=== PATIENT | male | born 1980 | race Caucasian/White ===

== ENCOUNTER 2025-04-20 08:50 | Outpatient (REF) | payer OTHER, SELFPAY ==
[2025-04-20 13:05] LABS: MANUAL DIFF FLAG NO
[2025-04-20 13:10] LABS: Hematocrit 41.3 % (42.0-52.0); Hemoglobin 13.9 g/dl (14.0-18.0); Imm Gran Abs Auto 0.13 X10*3/uL (0.00-0.03); Imm Gran Pct Auto 1.7 % (0.0-0.4); Lymphocytes Absolute Auto 1.8 X10*3/uL (1.2-4.9); Mean Corpuscular HGB Conc 33.7 g/dl (31.0-36.0); Mean Corpuscular Hemoglobin 27.1 pg (27.0-33.0); Mean Corpuscular Volume 80.5 fL (80.0-98.0); NRBC Abs Auto 0.000 X10*3/uL (0.0-0.012); NRBC Pct Auto 0.0 /100WBC (0.0-0.2); Platelet Count 225 X10*3/uL (160-400); Red Blood Count 5.13 X10*6/uL (4.60-5.80); White Blood Count 7.4 X10*3/uL (4.8-10.8)
[2025-04-20 13:24] LABS: Alanine Aminotransferase 46 U/L (0-40); Albumin Level 4.7 g/dL (3.5-5.0); Alkaline Phosphatase 126 U/L (39-117); Anion Gap 10 (12-20); Aspartate Amino Transferase 30 U/L (5-37); Blood Urea Nitrogen 9 mg/dL (9-16); Calcium 9.2 mg/dL (8.4-10.2); Carbon Dioxide 28 mmol/L (22-29); Chloride 105 mmol/L (96-108); Cholesterol 215 mg/dL (<200); Estimated Glomerular Filt Rate > 60; HDL Cholesterol 35 mg/dL (>40); Magnesium 2.2 mg/dL (1.6-2.6); Potassium 4.2 mmol/L (3.3-5.1); Sodium 139 mmol/L (135-145); Total Protein 7.7 g/dL (6.5-8.0); Triglycerides 143 mg/dL (<150)
[2025-04-20 13:33] LABS: Appearance Urine Turbid; Glucose Urine UA Negative (Negative); PH 5.5 (5.0-9.0); Specific Gravity - Urine >= 1.030 (1.005-1.025)
[2025-04-20 13:39] LABS: Total Hemoglobin (HGBA1C) 3560.7541 umol/L
[2025-04-20 14:02] LABS: Folate 9.6 ng/mL (> or = 4.0); Vitamin B12 238 pg/mL (200-900)
[2025-04-21 06:29] LABS: HBsAGNum1 0.43 S/CO (0.00-0.99); HIV Num 1 0.05 S/CO (0.00-0.99); Hepatitis B Surface Antigen Negative (Negative); ~HepC Num1 0.17 S/CO (0.00-0.79); ~Hepatitis B Surface Antibody REACTIVE (Nonreactive); ~Hepatitis C Antibody Nonreactive (Nonreactive)
[2025-04-28 01:48] LABS: VITAMIN D (1,25 OH) D3 77 pg/mL; Vit D (1,25-Dihydroxy) Total 77 pg/mL (18-72); Vitamin D (1,25 OH) D2 <8 pg/mL
== END 2025-04-20 08:51 | disposition home or self-care (01) ==
LOC: HO.HKASLDS 08:50
PROVIDERS: PCP Student in an Organized Health Care Education/Training Program; Visit Provider Student in an Organized Health Care Education/Training Program
DX: E66.01 Morbid (severe) obesity due to excess calories (principal); F41.9 Anxiety disorder, unspecified; F43.22 Adjustment disorder with anxiety; L98.9 Disorder of the skin and subcutaneous tissue, unspecified; Z13.1 Encounter for screening for diabetes mellitus; Z91.89 Other specified personal risk factors, not elsewhere classified; Z55.0 Illiteracy and low-level literacy; Z68.42 Body mass index [BMI] 45.0-49.9, adult
CPT/HCPCS: 36415; 80053; 80061; 81003; 82607; 82652; 82746; 83036; 83735; 85025; 86706; 86803; 87340; 87389; 96127

== ENCOUNTER 2025-04-20 08:50 | Outpatient (AMB) | payer OTHER, SELFPAY ==
--- NOTE | 2025-04-20 08:58 | A.OFFPC_ITS ---
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: No Accompanied by: Self / Same As Patient Allergies No Known Allergies Allergy (Verified 04/20/25 08:59) Tobacco use date assessed: 04/20/25 Dental Screening Dental Screen Date: 04/20/25 Did you have a dental visit in the last 12 months?: Yes Did you have a dental problem in the last 6 months where you did not have access to dental care?: No Was dental information given to patient?: No HPI HPI Comments 2 History of Present Illness0 Details History of Present Illness The patient is a 44-year-old male [facility] with a primary care physician and for assistance with social and vocational issues stemming from a learning disability. Anxiety and Social Determinants of Health: The patient reports experiencing anxiety following the loss of his [email or web address] job three weeks ago, a position he held for 20 years. His depression (PHQ) and anxiety (ALCON) screening scores were elevated. This anxiety is exacerbated by food and living insecurities, as his food stamp benefits were impacted. While he is considering therapy, he feels addressing his unemployment is the primary solution to his distress. Learning Disability: The patient has a significant learning disability, characterized by an inability to read or write effectively, which poses a major barrier to employment. He has a history of being in special education classes throughout his schooling. He requires a doctor's note documenting his disability to obtain a mentor for a [employer] certification program needed for kitchen work. Weight Gain: The patient has reportedly gained approximately 50 pounds since losing his job. Subcutaneous lesion of left upper limb: The patient reports having two bumps on his left arm, which he refers to as blood clots, that have been present for a long time. He states a previous doctor identified them as blood clots. The lesions are not painful. Surgical History: - Nasal fracture repair - [facility] - Unknown surgery on the left leg in [facility] Medications: - The patient has previously taken Vitam in for a vitamin deficiency but reports no current medications. Social History: - Education: The patient is illiterate, with difficulty in reading and writing, and was in special education classes during school. 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 - Social Support: He has a history of be ing in the foster care system from a young age. - Financial Security: He is experiencing food and living insecurities. - Substance Use: Denies any history of s moking, alcohol use, or illicit drug use. - Functional Status: Utilizes public tra nsportation (bus) or walks for travel. Family History: - Family history was not discussed. Diagnostic Results: - PHQ (depression screen) and ALCON (anxie ty screen) were noted to be elevated. Past Medical History - Specific learning disability with illi teracy, with a history of special education classes. - History of being in the foster care [facility] as a child. - History of vitamin deficiency, previou sly treated with vitamin C. - History of perforated left tympanic me mbrane, likely since childhood. - Patient denies any history of high blo od pressure or diabetes. Health Maintenance - The patient is establishing primary ca re, having not seen a doctor since before the COVID-19 pandemic. - Comprehensive baseline laboratory stud ies have been ordered, including a complete blood count, comprehensive metabolic panel, thyroid function tests, B12, folate, vitamin D, hemoglobin A1c, lipid panel, and screening for hepatitis B, hepatitis C, and HIV. [facility] Medical History Adjustment disorder with anxiety Illiterate Family History (Updated 04/20/25 @ 09:07 by Romario Brand MA) Father Liver cancer Mother Schizophrenia Social History Housing: Apartment Patient Tobacco Use Status: Never used Tobacco service: No Current occupational status: unemployed Cognitive needs: No Hearing needs: No Vision needs: No Questionnaire PHQ-9 Over the last 2 weeks, how often have you been bothered by any of the following problems? 1. Little interest or pleasure in doing things: several days 2. Feeling down, depressed, or hopeless: several days 3. Trouble falling or staying asleep, or sleeping too much: several days 4. Feeling tired or having little energy: several days 5. Poor appetite or overeating: more than half the days 6. Feeling bad about yourself - or that you are a failure or have let yourself or your family down: nearly every day 7. Trouble concentrating on things, such as reading the newspaper or watching television: more than half the days 8. Moving or speaking so slowly that other people could have noticed. Or the opposite - being so fidgety or restless that you have been moving around a lot more than usual: more than half the days 9. Thoughts that you would be better off or of hurting yourself in some way: not at all Total score: 13 Depression Screening Interpretation: Positive Depression Screening Done: Yes Source: Developed by Drs. Yordan Sheth, Lisa Poe, Yony Rehman and colleagues, with an educational yolanda from [employer]. Thrive Questionnaire I am a: Patient What is your living situation today?: I have a steady place to live Within the past 12 months, did the food you bought not last and you didn't have the money to get more?: Sometimes True Within the past 12 months, did you worry whether your food would run out before you got money to buy more?: Often true Do you have trouble paying for medicines?: No Do you have trouble getting transportation to medical appointments?: Yes Do you have trouble paying your heating and electricity bill?: No Do you have trouble taking care of your child, family member or friend?: No Are you currently unemployed and looking for a job?: Yes Are you interested in more education?: Yes Please select the resources that you would like help with: Food, Transportation, Care for elder or disabled, Daily support, Job search/training and Education Currently or been in a relationship where the following occur: No concerns reported THRIVE Score: 3 AUDIT C Alcohol Use Questionnaire (AUDIT-C) 1. How often do you have a drink containing alcohol?: Monthly or less 2. How many drinks containing alcohol do you have on a typical day when you are drinking?: 1 or 2 3. How often do you have six or more drinks on one occasion?: Never Total Score: 1 Score Reviewed/Action Taken: No ALCON-7 AMB Questionnaire ALCON-7 Feeling nervous, anxious, or on edge: 3 = Nearly every day Not being able to stop or control worryin = Nearly every day Worrying too much about different things: 3 = Nearly every day Trouble relaxin = Nearly every day Being so restless that it is hard to sit still: 2 = More than half the days Becoming easily annoyed or irritable: 2 = More than half the days Feeling afraid as if something awful might happen: 2 = More than half the days Total ALCON-7 score (0-4 normal; 5-9 mild; 10-14 moderate; 15-21 severe): 18 Source: Developed by Drs. Yordan Sheth, Lisa Poe, Yony Rehman and colleagues, with an educational yolanda from [employer]. Review of Systems Narrative Review of Systems - Constitutional: Reports a 50-pound weight gain since losing his job. - Psychiatric: Reports feeling anxiety due to unemployment. - Skin: Reports two non-painful lesions on his left arm. - GI: Reports normal urination and bowel movements. - Neurological: Reports sleeping well. 10-point ROS reviewed and negative except as noted in HPI Physical exam (Primary Care) BMI result Body Mass Index 48.7 Depression Screening Interpretation: Positive Currently or been in a relationship where the following occur: No concerns reported Narrative Physical Exam General: Well-appearing, in no acute distress. Vital signs: Within normal limits. HEENT: Normocephalic, atraumatic. PERRLA, EOMI. Conjunctiva clear, sclera anicteric. Oropharynx clear, mucous membranes moist. TMs intact bilaterally, except for a perforated membrane on the left side. Neck: Supple, no lymphadenopathy, no thyromegaly, no JVD or carotid bruits. Cardiovascular: RRR, normal S1/S2, no murmurs, rubs, or gallops. Peripheral pulses 2+ and symmetric. No edema. Respiratory: Lungs clear to auscultation bilaterally, no wheezes, rales, or rhonchi. Normal effort. Abdomen: Soft, non-tender, non-distended. Normoactive bowel sounds. No hepatosplenomegaly, no masses. MSK: Full range of motion, no joint swelling or deformity. Normal gait. History of surgery on both legs with visible scars. Skin: Warm, dry, intact. No rashes, lesions, or pallor. Neuro: Alert and oriented x3. Cranial nerves II-XII intact. Strength 5/5 throughout. Sensation intact. Reflexes 2+ symmetric. Normal coordination and gait. Psych: Appropriate mood and affect. Normal judgment and insight. Elevated PHQ and ALCON scores indicating anxiety and depression concerns. Skin Other: Coding Level of Care Code New Pt Level 4 (86252) Diagnoses Adjustment disorder with anxiety F43.22 Illiterate Z55.0 History of being in foster care Z91.89 Morbid obesity due to excess calories E66.01 Lesion of subcutaneous tissue L98.9 Assessment & Plan Assessment & Plan (1) Adjustment disorder with anxiety: Code(s): F43.22 - Adjustment disorder with anxiety Category: Medical (2) Illiterate: Code(s): Z55.0 - Illiteracy and low-level literacy Category: Medical (3) History of being in foster care: Code(s): Z91.89 - Other specified personal risk factors, not elsewhere classified (4) Morbid obesity due to excess calories: Code(s): E66.01 - Morbid (severe) obesity due to excess calories (5) Lesion of subcutaneous tissue: Code(s): L98.9 - Disorder of the skin and subcutaneous tissue, unspecified Plan Consent The patient provided verbal consent to have a photograph taken of the lesions on his arm to be uploaded into the electronic medical record. Patient was informed and verbally consented to the use of an ambient scribe for clinic note documentation during this visit. Plan 1. Anxiety And Social Determinants Of Health - An urgent referral will be placed to the community nurse navigator team to connect the patient with resources for his social, financial, and vocational needs. - A referral will be made to behavioral health for mental health support. - The patient was advised to provide a secondary contact number at checkout to ensure the referral teams can make contact. 2. Adult Health Maintenance & Establishment Of Care - Comprehensive baseline labs will be obtained, including CBC, CMP, thyroid panel, B12, folate, vitamin D, HbA1c, lipid panel, and a hepatitis B/C/HIV panel. - A follow-up visit is scheduled in two weeks to review laboratory results and assess progress. 3. Subcutaneous Lesion Of Left Upper Limb - The lesions were examined and a photograph was taken for documentation in the EMR. - No further workup or intervention is planned at this time. Discussion Notes I met with the patient, a 44-year-old male, who presented to [facility]. I acknowledged his significant socioeconomic stressors, including recent unemployment, illiteracy, food insecurity, and the resulting anxiety, confirmed by elevated PHQ and ALCON screens. I explained that the most immediate and impactful step is to connect him with our support services. I informed him that I am placing an urgent referral to our community nurse navigator team and a referral to behavioral health; I explained these teams are comprised of social workers, nurses, and other specialists who can help him access community resources. I emphasized the importance of ensuring his contact information is up to date and to call us if he doesn't hear from the teams within a few days. I also explained that as his new primary care physician, I am ordering a full panel of baseline labs to assess his overall health, as he has not had care in several years. We will follow up in two weeks to review these results. I obtained his consent to photograph a lesion on his arm for documentation. I reassured him that we will work together to get him the help he needs. Patient Instructions - Go to the lab to have the blood work done that we discussed. - Please make a follow-up appointment to see me again in two weeks to go over your lab results. - A referral has been sent to our community nurse navigator team and to our behavioral health team. - You should expect a phone call from them soon. - If you do not hear from them within a few days, please call our office. - At checkout, please give the staff both your phone number and a second contact number so these teams can reach you. Medical Decision Making The patient is a 44-year-old male with significant, acute social and economic stressors, presenting to [facility]. His chief complaints are situational anxiety secondary to recent unemployment and food insecurity, and barriers to re-employment due to illiteracy. Elevated depression and anxiety screens corroborate his subjective distress. The cornerstone of the management plan is to address these underlying social determinants of health. An urgent referral to the community nurse navigator was deemed most appropriate to provide immediate, comprehensive support for housing, vocational assistance, and resource navigation. A concurrent referral to behavioral health was made to address his anxiety. Given his lack of recent medical care, a comprehensive set of baseline labs was ordered to screen for common chronic diseases and nutritional deficiencies, establishing a baseline for future health monitoring. Physical exam findings, such as the chronic-appearing perforated eardrum and non-tender skin lesions, were documented but do not require acute intervention. A two-week follow-up will allow for review of lab results and confirmation that the patient has been successfully connected with the referred support services. Total time spent caring for the patient today was 20 minutes. This includes time spent before the visit reviewing the chart, time spent documenting, and time spent reviewing laboratory results, diagnostic imaging, medications, performing a medically necessary evaluation, counseling on diagnoses, care coordination. Orders: Orders 2 Comprehensive Met. Panel Today Z13.9 - Encounter for screening, unspecified HIV Ab/Ag Today Z13.9 - Encounter for screening, unspecified Magnesium Today Z13.9 - Encounter for screening, unspecified Vitamin D 1,25 dihydroxy Today Z13.9 - Encounter for screening, unspecified Complete Blood Count Auto Diff Today Z13.9 - Encounter for screening, unspecified Hemoglobin A1c Today Z13.9 - Encounter for screening, unspecified Hepatitis B Surface Antibody Today Z13.9 - Encounter for screening, unspecified Hepatitis B Surface Antigen Today Z13.9 - Encounter for screening, unspecified Hepatitis C Antibody Today Z13.9 - Encounter for screening, unspecified Lipid Panel Today Z13.9 - Encounter for screening, unspecified UA CC w/rflx Micro + Cult Today Z13.9 - Encounter for screening, unspecified Vitamin B12 and Folate Today Z13.9 - Encounter for screening, unspecified Referrals 2 Nurse Navigator Referral F43.22 - Adjustment disorder with anxiety, Z55.0 - Illiteracy and low-level literacy Behavioral Health Referral F43.22 - Adjustment disorder with anxiety, F89 - Unspecified disorder of psychological development, Z55.0 - Illiteracy and low- level literacy
[2025-04-20 09:01] VITALS: BP 116/76; PULSE 78; RESP 16; TEMP 36.9; O2SAT 97; BMI 48.7
== END 2025-04-20 09:30 | disposition home or self-care (01) ==
LOC: HO.HMCFMS 08:51
PROVIDERS: Visit Provider Student in an Organized Health Care Education/Training Program
DX: F43.22 Adjustment disorder with anxiety (principal); Z55.0 Illiteracy and low-level literacy; Z91.89 Other specified personal risk factors, not elsewhere classified; E66.01 Morbid (severe) obesity due to excess calories; L98.9 Disorder of the skin and subcutaneous tissue, unspecified

== ENCOUNTER 2025-05-05 09:29 | Outpatient (AMB) | payer OTHER, SELFPAY ==
[2025-05-05 09:45] VITALS: BP 138/84; PULSE 72; RESP 16; TEMP 37.3; O2SAT 96; BMI 48.3
--- NOTE | 2025-05-05 09:45 | A.OFFPC_ITS ---
Vital Signs 05/05/25 09:45 Height 5 ft 7.32 in Weight 311 lb 4 oz BMI 48.3 BP 138/84 Blood Pressure Location Rt brachial Position Sitting Respiration 16 Pulse 72 Pulse Source Pulse Oximeter Temp 99.1 F Temp Source Oral Pulse Oximetry (%) 96 Oxygen Delivery Method Room Air Intake Visit Reasons: 2 wk f/u Allergies No Known Allergies Allergy (Verified 05/05/25 09:46) Tobacco use date assessed: 04/20/25 Dental Screening Dental Screen Date: 04/20/25 HPI HPI Comments History of Present Illness Details History of Present Illness The patient is a 44-year-old male presenting for follow-up and review of lab results. Type 2 Diabetes Mellitus: The patient was newly diagnosed with type 2 diabetes mellitus based on a recent hemoglobin A1c of 6.5. Recent lab work also showed an elevated random glucose. He reports consuming too much soda. Hyperlipidemia: Recent lab results revealed hyperlipidemia, with a total cholesterol of 215 mg/dL, LDL of 152 mg/dL, and HDL of 35 mg/dL. He also has elevated liver enzymes, which is noted to coincide with his cholesterol levels. Anemia: The patient's recent lab work showed slightly low hemoglobin and hematocrit. He denies associated symptoms such as fatigue or dizziness. Vitamin B12 deficiency: Recent laboratory testing showed a vitamin B12 level at the lower end of the normal range at 238, with a reference range of 200-900. Medications: - The patient is not currently taking an y medications or vitamin supplements. Social History: - Employment: The patient recently secur ed a job at [email or web address] after a period of unemployment during which he felt down and broken. - Nutrition: Acknowledges drinking too m uch soda and intends to stop. - Physical Activity: He anticipates he w ill be walking more as part of his new job. Diagnostic Results: - White Blood Cells: Normal. - Red Blood Cells: Normal. - Hemoglobin and Hematocrit: Slightly lo w. - Chemistry panel: Sodium and potassium are normal; kidney function is normal. - Random Glucose: Elevated. - Hemoglobin A1c: 6.5. - Liver Enzymes: Elevated. - Total Cholesterol: 215 mg/dL. - LDL Cholesterol: 152 mg/dL. - HDL Cholesterol: 35 mg/dL. - Vitamin D: 77. - Vitamin B12: 238. - Folate: Normal. - Urinalysis: Normal. - Hepatitis B, Hepatitis C, HIV Screenin g: Negative. Past Medical History - Depressed mood: Patient reports previo usly feeling down trying and just broken due to unemployment. Health Maintenance - The community nurse navigator will be engaged to assist the patient in establishing a workout routine. - The patient will follow up in three mo hs for reassessment. [facility] Medical History Iron deficiency anemia Low vitamin B12 level Hyperlipidemia Diabetes type 2 Adjustment disorder with anxiety Illiterate Family History (Updated 04/20/25 @ 09:07 by Romario Brand MA) Father Liver cancer Mother Schizophrenia Social History Housing: Apartment Patient Tobacco Use Status: Never used Tobacco service: No Current occupational status: unemployed Cognitive needs: No Hearing needs: No Vision needs: No Questionnaire Thrive Questionnaire Date Thrive assessed: 04/20/25 I am a: Patient What is your living situation today?: I have a steady place to live Within the past 12 months, did the food you bought not last and you didn't have the money to get more?: Sometimes True Within the past 12 months, did you worry whether your food would run out before you got money to buy more?: Often true Do you have trouble paying for medicines?: No Do you have trouble getting transportation to medical appointments?: Yes Do you have trouble paying your heating and electricity bill?: No Do you have trouble taking care of your child, family member or friend?: No Are you currently unemployed and looking for a job?: Yes Are you interested in more education?: Yes Currently or been in a relationship where the following occur: No concerns reported THRIVE Score: 3 Review of Systems Narrative Review of Systems - Constitutional: Denies feeling tired or dizzy. - Psychiatric: Reports feeling positive and energetic after a recent period of feeling down trying and just broken. 10-point ROS reviewed and negative except as noted in HPI Physical exam (Primary Care) Vital Signs: Last Vital Signs Temp 99.1 F 05/05/25 09:45 Pulse 72 05/05/25 09:45 Resp 16 05/05/25 09:45 BP 138/84 05/05/25 09:45 Pulse Ox 96 05/05/25 09:45 Oxygen Delivery Method Room Air 05/05/25 09:45 BMI result Body Mass Index 48.3 Tobacco/Smoking Status: Tobacco use Status Tobacco use date assessed 04/20/25 05/05/25 09:45 Patient Tobacco Use Status Never used Tobacco 05/05/25 09:45 Thrive Assessment: Date of Thrive Assessment Date Thrive assessed 04/20/25 05/05/25 09:45 Currently or been in a relationship where the following occur: No concerns reported Narrative Physical Exam General: Well-appearing, in no acute distress. Vital signs: Within normal limits. HEENT: Normocephalic, atraumatic. PERRLA, EOMI. Conjunctiva clear, sclera anicteric. Oropharynx clear, mucous membranes moist. TMs intact bilaterally. Neck: Supple, no lymphadenopathy, no thyromegaly, no JVD or carotid bruits. Cardiovascular: RRR, normal S1/S2, no murmurs, rubs, or gallops. Peripheral pulses 2+ and symmetric. No edema. Respiratory: Lungs clear to auscultation bilaterally, no wheezes, rales, or rhonchi. Normal effort. Abdomen: Soft, non-tender, non-distended. Normoactive bowel sounds. No hepatosplenomegaly, no masses. MSK: Full range of motion, no joint swelling or deformity. Normal gait. Skin: Warm, dry, intact. No rashes, lesions, or pallor. Neuro: Alert and oriented x3. Cranial nerves II-XII intact. Strength 5/5 throughout. Sensation intact. Reflexes 2+ symmetric. Normal coordination and gait. Psych: Appropriate mood and affect. Normal judgment and insight. Mood is positive, with a noticeable improvement in energy and outlook. Coding Level of Care Code Est Pt Level 3 (31351) Diagnoses Diabetes type 2 E11.9 Hyperlipidemia E78.5 Low vitamin B12 level R79.89 Iron deficiency anemia D50.9 Assessment & Plan Assessment & Plan (1) Diabetes type 2: Code(s): E11.9 - Type 2 diabetes mellitus without complications Category: Medical (2) Hyperlipidemia: Code(s): E78.5 - Hyperlipidemia, unspecified Category: Medical (3) Low vitamin B12 level: Code(s): R79.89 - Other specified abnormal findings of blood chemistry Category: Medical (4) Iron deficiency anemia: Code(s): D50.9 - Iron deficiency anemia, unspecified Category: Medical Plan Consent The risks, benefits, and alternatives of initiating treatment for type 2 diabetes and hyperlipidemia were discussed. The patient was presented with the option of lifestyle modifications alone versus lifestyle modifications with medication. The patient expressed a desire to do whatever would help him and agreed to start the recommended medications, including metformin, a statin, and vitamin B12. Patient was informed and verbally consented to the use of an ambient scribe for clinic note documentation during this visit. Plan 1. Type 2 Diabetes Mellitus - The patient was diagnosed with type 2 diabetes mellitus based on a hemoglobin A1c of 6.5. - Will initiate metformin to help lower blood glucose levels. - Patient advised on lifestyle modifications, including reducing soda intake. - Referrals will be made to a material clerk and a family living educator. 2. Hyperlipidemia - The patient has elevated cholesterol with an LDL of 152 mg/dL. - Due to his new diagnosis of type 2 diabetes, he is at higher risk for cardiovascular disease, so a statin will be initiated to lower his LDL cholesterol to a goal of below 70 mg/dL. 3. Vitamin B12 Deficiency - Vitamin B12 level is on the lower side of normal at 238. - Will prescribe vitamin B12 supplementation to counteract the potential B12- lowering effect of metformin and to prevent fatigue. Discussion Notes I reviewed the patient's recent laboratory results with him. I explained that his hemoglobin A1c of 6.5 establishes a new diagnosis of type 2 diabetes mellitus. We discussed that while we caught it early and do not need to start insulin, medication would be beneficial. I also informed him about his high cholesterol levels and the elevated liver enzymes that likely correspond. I emphasized that the diabetes diagnosis places him at a higher risk for cardiovascular disease, necessitating more aggressive cholesterol management with a goal LDL under 70. I recommended starting oral medications for both diabetes (metformin) and cholesterol (a statin), in addition to lifestyle changes. I also recommended vitamin B12 supplementation to prevent deficiency related to metformin use. The patient agreed with the plan to start these medications. We discussed referrals for a material clerk and family living educator, as well as engaging the community nurse navigator for exercise guidance. He was instructed to follow up in three months. Patient Instructions - You have been diagnosed with type 2 diabetes and high cholesterol based on your recent lab work. - You will start taking metformin for diabetes, a statin medication for cholesterol, and a vitamin B12 supplement. - Your prescriptions have been sent to the [facility] pharmacy at [address] [place] [address] in [place]. - It is very important to make lifestyle changes, including stopping soda consumption and drinking more water, as well as increasing your physical activity. - You will be contacted by a material clerk and a family living educator to help you manage your new diagnosis. - The community nurse navigator can help you find a workout routine. - Please schedule a follow-up appointment in three months. Medical Decision Making The patient is a 44-year-old male who presented for a review of his recent lab results. The results are significant for a hemoglobin A1c of 6.5, establishing a new diagnosis of type 2 diabetes mellitus. His lipid panel also revealed hyperlipidemia with an LDL of 152. Given the new diabetes diagnosis, the patient has an increased risk of cardiovascular disease, which makes aggressive lipid management essential. Therefore, the treatment goal is an LDL of less than 70, requiring the initiation of a statin. Although lifestyle modification was discussed as an option, I recommended adding medication to achieve glycemic and lipid control more rapidly and protect against complications, to which the patient was agreeable. Metformin was chosen for diabetes management. Additionally, his vitamin B12 level is on the low end of normal, and since metformin can deplete B12, prophylactic supplementation is warranted. His elevated liver enzymes are likely secondary to dyslipidemia and potential non-alcoholic fatty liver disease. The patient's new employment and positive change in mood are encouraging factors for adherence to the treatment plan, which includes referrals for nutrition, diabetes education, and support from the community nurse navigator for an exercise plan. Follow-up is planned in three months to reassess. Total Time Statement 20 min Total time spent caring for the patient today includes pre-visit chart review, documentation, review of laboratory and diagnostic imaging results, medication reconciliation, medically necessary evaluation, counseling on diagnoses, care coordination, ordering appropriate tests and medications, review of tests performed by other providers, reporting test results to the patient, and communication with other healthcare providers. Medications: New rosuvastatin 20 mg PO DAILY 90 tabs 0RF E11.9 - Type 2 diabetes mellitus without complications metformin 500 mg PO BID 180 tabs 0RF E11.9 - Type 2 diabetes mellitus without complications mecobalamin (vitamin B12) place tablet under tongue and allow to dissolve for at least30 secs before swallowing 1,000 mcg sublingual BEDTIME 90 tabs 0RF
== END 2025-05-05 10:41 | disposition home or self-care (01) ==
LOC: HO.HMCFMS 09:29
PROVIDERS: PCP Student in an Organized Health Care Education/Training Program; Visit Provider Student in an Organized Health Care Education/Training Program
DX: E11.9 Type 2 diabetes mellitus without complications (principal); E78.5 Hyperlipidemia, unspecified; R79.89 Other specified abnormal findings of blood chemistry; D50.9 Iron deficiency anemia, unspecified